=== PATIENT | female | born 1945 | race Caucasian/White ===

== ENCOUNTER 2019-05-28 20:55 | Emergency (ER) | payer OTHER, MEDICAID ==
[~2019-05-28] VITALS: Ht 160 cm; Wt 49.9 kg
[2019-05-28 21:00] VITALS: BP 127/55
[2019-05-28 23:38] VITALS: BP 112/68
== END 2019-05-28 23:38 | disposition home or self-care (01) ==
LOC: MED 20:55
DX: S09.90XA Unspecified injury of head, initial encounter (principal); I10 Essential (primary) hypertension; F03.90 Unspecified dementia, unspecified severity, without behavioral disturbance, psychotic disturbance, mood disturbance, and anxiety; W18.39XA Other fall on same level, initial encounter; Y92.89 Other specified places as the place of occurrence of the external cause; Y93.89 Activity, other specified; Y99.8 Other external cause status
CPT/HCPCS: 70450; 99284